=== PATIENT | male | born 1980 | race Two or more races ===

== ENCOUNTER 2019-07-04 17:21 | Emergency (ER) | payer OTHER ==
[~2019-07-04] VITALS: Ht 175.3 cm; Wt 88.5 kg
[2019-07-04 17:35] VITALS: BP 158/88
--- NOTE | 2019-07-04 18:52 | NUR ---
WOUND CLEANSED AND COVERED WITH BANDAGE. FINGER SPLINT APPLIED ON LEFT MIDDLE FINGER. Patient discharged to home in stable condition. Written and verbal after care instructions given. Patient verbalizes understanding of instruction, gave a copy of xray. Refused prescriptions for Ibuprofen and Tramadol. Ryan KUMAR explained discharge instructions and reason for non-narcotic prescription. Refused to sign discharge paperworks.
== END 2019-07-04 18:57 | disposition home or self-care (01) ==
LOC: ER 17:27
DX: S61.215A Laceration without foreign body of left ring finger without damage to nail, initial encounter (principal); E11.9 Type 2 diabetes mellitus without complications; F17.200 Nicotine dependence, unspecified, uncomplicated; W23.0XXA Caught, crushed, jammed, or pinched between moving objects, initial encounter; Y93.89 Activity, other specified; Y92.89 Other specified places as the place of occurrence of the external cause; Y99.0 Civilian activity done for income or pay
CPT/HCPCS: 73140-TC